=== PATIENT | male | born 1950 | race Caucasian/White ===

== ENCOUNTER → 2017-02-10 | Outpatient (CLI) | payer MEDICARE ==
[2017-02-10 16:39] VITALS: BP 188/67; PULSE 84; RESP 16; TEMP 98; BMI 33.0
== END | disposition home or self-care (01) ==
LOC: BARWHC3 15:22
PROVIDERS: ATTEND Surgery Plastic and Reconstructive Surgery
DX: Z48.815 Encounter for surgical aftercare following surgery on the digestive system (principal); E66.01 Morbid (severe) obesity due to excess calories; Z98.84 Bariatric surgery status; E89.1 Postprocedural hypoinsulinemia; D50.8 Other iron deficiency anemias; E44.0 Moderate protein-calorie malnutrition; E55.9 Vitamin D deficiency, unspecified; Z68.35 Body mass index [BMI] 35.0-35.9, adult; E11.9 Type 2 diabetes mellitus without complications; I11.9 Hypertensive heart disease without heart failure
CPT/HCPCS: 99201

== ENCOUNTER 2017-03-17 06:45 | Day surgery (SDC) | payer MEDICARE ==
[2017-03-15 16:36] VITALS: BMI 33.3
[~2017-03-17 06:45] MED LIST: LACTATED RINGERS 1,000 ML IV SCH
[2017-03-17 07:19] VITALS: TEMP 98.7
--- NOTE | 2017-03-17 07:37 | P.GSHP ---
History of Present Illness H&P Date: 03/17/17 CHIEF COMPLAINT: GERD HISTORY OF PRESENT ILLNESS: The patient is a 67-year-old male who presents reports gastroesophageal reflux disease. Upper endoscopy was offered for further evaluation and management. PAST MEDICAL HISTORY: Please see list. PAST SURGICAL HISTORY: Please see list. MEDICATIONS: Please see list. ALLERGIES: Please see list. SOCIAL HISTORY: No illicit drug use FAMILY HISTORY: No reports of Crohn disease or ulcerative colitis. REVIEW OF ORGAN SYSTEMS: CONSTITUTIONAL: No reports of fevers or chills. GI: Denies any blood in stools or constipation. PHYSICAL EXAM: VITAL SIGNS: Stable GENERAL: Well-developed and pleasant in no acute distress. HEENT: No scleral icterus. Extraocular movements grossly intact. Moist buccal mucosa. NECK: Supple without lymphadenopathy. CHEST: Unlabored respirations. Equal bilateral excursions. CARDIOVASCULAR: Regular rate and rhythm. Distal 2+ pulses. ABDOMEN: Soft, nondistended. MUSCULOSKELETAL: No clubbing, cyanosis, or edema. ASSESSMENT: 1. Gastroesophageal reflux disease PLAN: 1. Recommend proceeding with an upper endoscopy Past Medical History Past Medical History: Diabetes Mellitus, GERD/Reflux, Osteoarthritis (OA), Seizure Disorder Additional Past Medical History / Comment(s): HX OF SEIZURE X1 (1994), BORDERLINE HTN, ENVIRONMENTAL ALLERGIES , DAILY SINUS HEADACHES, CHRONIC BACK PAIN ,MUSCLE PARLAYSIS LEFT LOW BACK FROM SPINAL TAP., PAIN FROM HERNIATED CERVICAL DISCS. History of Any Multi-Drug Resistant Organisms: None Reported Past Surgical History: Hernia Repair, Orthopedic Surgery Additional Past Surgical History / Comment(s): ,bilateral carpal tunnel surgery trigger finger surgery, cataract surgery Past Anesthesia/Blood Transfusion Reactions: No Reported Reaction Past Psychological History: No Psychological Hx Reported Smoking Status: Former smoker Past Alcohol Use History: None Reported Additional Past Alcohol Use History / Comment(s): quit 1997, SMOKED 1 PPD OR LESS, SMOKED 30 YEARS. Past Drug Use History: None Reported - Past Family History Mother Family Medical History: Blood Disorder Additional Family Medical History / Comment(s): COLON CANCER Father Family Medical History: Cancer Additional Family Medical History / Comment(s): COLON CANCER Medications and Allergies Home Medications Medication Instructions Recorded Confirmed Type Glimepiride [Amaryl] 4 mg PO DAILY 02/10/17 03/17/17 History Glucosam/Chond/Hyalu/Cf Borate 1 tab PO DAILY 02/10/17 03/17/17 History [Move Free Joint Health Tablet] Insulin Glargine,Hum.rec.anlog 68 units SQ HS 02/10/17 03/17/17 History [Toujeo Solostar] Lansoprazole [Prevacid] 15 tab PO DAILY 02/10/17 03/17/17 History metFORMIN HCL 1 tab PO BID 02/10/17 03/17/17 History Acetaminophen Tab [Tylenol Tab] 650 mg PO Q4-6H PRN 03/15/17 03/17/17 History Cholecalciferol [Vitamin D3] 1,000 unit PO DAILY 03/15/17 03/17/17 History Ibuprofen [Motrin] 200 - 600 mg PO Q4-6H PRN 03/15/17 03/17/17 History Insulin Glargine,Hum.rec.anlog 68 units SQ HS 03/15/17 03/17/17 History [Toujeo Solostar] Krill Oil (Unknown Dose) 1 cap PO DAILY 03/15/17 03/17/17 History Niacin 200 mg PO DAILY 03/15/17 03/17/17 History Pseudoephedrine [Sudafed] 60 mg PO Q4-6H PRN 03/15/17 03/17/17 History Vitamin B Complex 1 each PO DAILY 03/15/17 03/17/17 History Vitamin E Acetate [Vitamin E] 200 unit PO DAILY 03/15/17 03/17/17 History Allergies Allergy/AdvReac Type Severity Reaction Status Date / Time omeprazole [From Prilosec] Allergy Rash/Hives Verified 03/17/17 07:15 clarithromycin [From Biaxin] AdvReac Unknown Black Verified 03/17/17 07:15 Hairy Tongue. Uppicls-Jqz-Jjg Reductase AdvReac Unknown skin and Verified 03/17/17 07:15 Inhibitor muscle pain Surgical - Exam Vital Signs Temp Pulse Resp BP Pulse Ox 98.7 F 89 16 177/71 99 03/17/17 07:07 03/17/17 07:07 03/17/17 07:07 03/17/17 07:07 03/17/17 07:07
[2017-03-17 07:54] LABS: Glucose,Whole Blood 136 mg/dL (75-99)
[2017-03-17] MEDS ORDERED: PROPOFOL 10 MG/ML 20 ML VIAL IV ONE (07:58)
[2017-03-17] MEDS ORDERED: LIDOCAINE 1% INJ 10MG/ML (20 ML MDV) ONE (07:58)
--- NOTE | 2017-03-17 08:10 | P.PCN ---
Date of Procedure: 03/17/17 Description of Procedure: PREOPERATIVE DIAGNOSIS: Gastroesophageal reflux disease. Morbid obesity. POSTOPERATIVE DIAGNOSIS: Morbid obesity. Gastritis. Gastroesophageal reflux disease. Diaphragmatic hiatal hernia without obstruction. OPERATION: Esophagogastroduodenoscopy with biopsies along antrum. SURGEON: Rebecca Pozo MD ANESTHESIA: MAC. INDICATIONS: The patient is a 67-year-old male who presents with a history of reflux disease. Benefits and risks of the procedure were described. Informed consent was obtained. DESCRIPTION: The patient was brought into the endoscopy suite and laid in the left lateral decubitus position. An Olympus gastroscope was passed along the posterior oropharynx down to the distal esophagus where the squamocolumnar junction was encountered at 41 cm from the incisors. The stomach was entered and no bile reflux was found. Additional findings are listed below. Biopsies with cold forceps were obtained of the antrum. The first through third portion of the duodenum was examined and unremarkable. Retroflexion of the scope confirmed Hill grade 4 lower esophageal valve. The squamocolumnar junction demostrated LA grade A erosive esophagitis. The stomach was desufflated. The patient tolerated the procedure well. FINDINGS: Squamocolumnar junction 40 cm from the incisors. Diaphragmatic hiatus at 41 cm. Hiatal hernia 1 cm. Hill grade 4 lower esophageal valve. LA grade A erosive esophagitis. No active duodenitis. Gastritis. RECOMMENDATIONS: Further recommendations pending results of pathology report. Upper endoscopy as needed.
[2017-03-17 08:17] VITALS: RESP 20
[2017-03-17 08:34] VITALS: BP 142/64; PULSE 87
== END 2017-03-17 09:00 | disposition home or self-care (01) ==
LOC: ORWHC2ENDO 06:45
PROVIDERS: ATTEND Surgery Plastic and Reconstructive Surgery
DX: K29.50 Unspecified chronic gastritis without bleeding (principal); K44.9 Diaphragmatic hernia without obstruction or gangrene; K21.0 Gastro-esophageal reflux disease with esophagitis; E66.01 Morbid (severe) obesity due to excess calories; E11.9 Type 2 diabetes mellitus without complications; M19.90 Unspecified osteoarthritis, unspecified site; G40.909 Epilepsy, unspecified, not intractable, without status epilepticus; M54.9 Dorsalgia, unspecified; G89.29 Other chronic pain; M50.20 Other cervical disc displacement, unspecified cervical region; I10 Essential (primary) hypertension; Z79.84 Long term (current) use of oral hypoglycemic drugs; Z79.4 Long term (current) use of insulin; Z79.899 Other long term (current) drug therapy; Z88.8 Allergy status to other drugs, medicaments and biological substances; Z87.891 Personal history of nicotine dependence
CPT/HCPCS: 88305; 88342; 43239; J2001; J2704

== ENCOUNTER → 2017-03-17 | Outpatient (CLI) | payer MEDICARE ==
[2017-03-17 09:18] LABS: EKG EKG PERFORMED
[2017-03-17 09:39] LABS: CH 31.7; CHCM 34.2; HDW 2.74; HGB 13.4 gm/dL (13.0-17.5); MCH 32.7 pg (25.0-35.0); MCHC 35.2 g/dL (31.0-37.0); Mean Platelet Volume 6.6; RBC 4.09 m/uL (4.30-5.90); RDW 13.9 % (11.5-15.5); WBC 7.4 k/uL (3.8-10.6)
[2017-03-17 12:23] LABS: Hemoglobin A1C 8.3 % (4.2-6.1)
[2017-03-17 12:46] LABS: ALT 88 U/L (21-72); AST 50 U/L (17-59); Alkaline Phosphatase 59 U/L (38-126); Anion Gap 11 mmol/L; Blood Urea Nitrogen 16 mg/dL (9-20); Calcium 9.3 mg/dL (8.4-10.2); Carbon Dioxide 25 mmol/L (22-30); Chloride 104 mmol/L (98-107); Cholesterol 198 mg/dL (<200); Glucose 130 mg/dL (74-99); HDL Cholesterol 40 mg/dL (40-60); Non-African American GFR(MDRD) >60 (>60 ml/min/1.73 sqM); Potassium 4.5 mmol/L (3.5-5.1); Sodium 140 mmol/L (137-145); Total Bilirubin 0.4 mg/dL (0.2-1.3); Total Protein 6.8 g/dL (6.3-8.2)
[2017-03-17 12:55] LABS: Total Iron Binding Capacity 352 ug/dL (261-462)
[2017-03-17 13:31] LABS: Vitamin B12 618 pg/mL
== END | disposition home or self-care (01) ==
LOC: LABWHC1 09:08
PROVIDERS: ATTEND Surgery Plastic and Reconstructive Surgery
DX: Z48.815 Encounter for surgical aftercare following surgery on the digestive system (principal); E66.01 Morbid (severe) obesity due to excess calories; D50.8 Other iron deficiency anemias; E55.9 Vitamin D deficiency, unspecified; E11.9 Type 2 diabetes mellitus without complications; I11.9 Hypertensive heart disease without heart failure; Z68.35 Body mass index [BMI] 35.0-35.9, adult; Z98.84 Bariatric surgery status
CPT/HCPCS: 36415; 80053; 80061; 82306; 82607; 82728; 82746; 83036; 83550; 84425; 84443; 85027; 93005

== ENCOUNTER → 2017-03-25 | Outpatient (CLI) | payer MEDICARE ==
[2017-03-25 12:28] VITALS: BP 135/62; PULSE 74; RESP 16; TEMP 98.1; BMI 34.1
--- NOTE | 2017-04-04 21:54 | P.PN ---
Progress Note - Text DATE OF SERVICE: 03/25/2017 CHIEF COMPLAINT: Morbid obesity. HISTORY OF PRESENT ILLNESS: Pepe Awan is a 67-year-old gentleman with morbid obesity who 1 month ago was 226 and body mass was 35.7. He comes in weighing 216 pounds. He has gained 6 pounds. [place] body weight is 154 pounds. He is 60 pounds overweight. He completed an upper endoscopy. He has poorly controlled diabetes type 2. His gastroesophageal reflux disease. Now he presents for follow-up. PAST MEDICAL HISTORY: 1. Dyslipidemia. 2. Diabetes type 2, insulin-dependent. 3. Hypertension. 4. Osteoarthritis. 6. Obstructive sleep apnea. PAST SURGICAL HISTORY: 1. Inguinal hernia repair. 2. Bilateral carpal tunnel surgery. 3. Cataract surgery. MEDICATIONS: 1. Prevacid. 2. Insulin glargine 3. Amaryl. 4. Metformin. 5. Move free joint tablet 6. Vitamin E. 7. Vitamin B complex. 8. Sudafed. 9. Niacin. 10. Krill oil. 11. Motrin. 12. Vitamin D. 13. Tylenol. ALLERGIES: 1. Omeprazole. 2. Clarithromycin. 3. Statins. SOCIAL HISTORY: Former smoker. He is . He is a retired nurse. FAMILY HISTORY: Pertinent for obesity. He also has an aunt who had stomach cancer. Strong family history of diabetes type 2. REVIEW OF SYSTEMS: CONSTITUTIONAL: Initially weight of 226 pounds. Recent weight loss of 16 pounds. Body mass index was 35.7 down to 33.2. HEENT: Denies any active troubles with vision or hearing. ENDOCRINE: No reports of hypothyroidism. Poorly controlled diabetes type 2, insulin-dependent. RESPIRATORY: No dysuria exertion. No reports of asthma. CARDIOVASCULAR: No reports of heart attacks or chest pain. History of hypertensive heart disease. GI: Denies any diarrhea, constipation, or blood in stools. MUSCULOSKELETAL: Has diffuse joint pain involving the lower back, hips, knees. NEURO: No reports of seizure disorders. No history of headaches. PSYCH: No reports of depression or suicidal ideation. HEMATOLOGIC: No family history of DVTs or pulmonary embolism. PHYSICAL EXAM: VITAL SIGNS: 5 foot 6.75 inches, 216 pounds, Body mass index 34.1. Vital Signs Temp 98.1 F 03/25/17 12:20 Pulse 74 03/25/17 12:20 Resp 16 03/25/17 12:20 BP 135/62 03/25/17 12:20 Pulse Ox GENERAL: Well-developed pleasant male in no acute distress. HEENT: No scleral icterus. Extraocular movements grossly intact. Moist buccal mucosa. No nasal drainage. Hears conversational speech. NECK: Supple without lymphadenopathy. Has no JVD distention. CHEST: Unlabored respirations with equal bilateral excursions. CARDIOVASCULAR: Regular rate, regular rhythm. Distal 2+ pulses. ABDOMEN: Obese, soft, nontender, nondistended. MUSCULOSKELETAL: No clubbing, cyanosis, or edema. NEURO: No focal or lateralizing signs. Cranial nerves 2 through 12 grossly within normal limits. PSYCH: Appropriate affect. Alert and oriented to person, place and time. SKIN: Well perfused. Good skin turgor. EGD FINDINGS: Squamocolumnar junction 40 cm from the incisors. Diaphragmatic hiatus at 41 cm. Hiatal hernia 1 cm. Hill grade 4 lower esophageal valve. LA grade A erosive esophagitis. No active duodenitis. Gastritis. LABS: Hemoglobin A1c of 8.3. Triglycerides elevated. ALT elevated. TSH is low. EKG: Left axis deviation. ASSESSMENT: 1. Obesity due to excess calories 2. BMI 33.2. 3. Hypertensive heart disease with cardiomyopathy. 4. Diabetes type 2, insulin-dependent, poorly controlled. 5. Gastroesophageal reflux disease. 6. Chronic sinusitis. 7. Osteoarthritis, diffuse. 8. Hiatal hernia. 9. Hyperthyroidism. 10. Hypertriglyceridemia. 11. Elevated ALT. PLAN: 1. He has elevated hemoglobin A1c despite multiple medications for his blood sugar. 2. Recommend evaluation and treatment for obstructive sleep apnea. 3. He has a hiatal hernia which explains his gastroesophageal reflux disease. He is looking into a gastric bypass. 4. His EKG is not completely normal. Recommend evaluation with refinisher.
== END | disposition home or self-care (01) ==
LOC: BARWHC3 10:28
PROVIDERS: ATTEND Surgery Plastic and Reconstructive Surgery
DX: E66.9 Obesity, unspecified (principal); I11.9 Hypertensive heart disease without heart failure; E11.9 Type 2 diabetes mellitus without complications; K21.9 Gastro-esophageal reflux disease without esophagitis; J32.9 Chronic sinusitis, unspecified; M19.90 Unspecified osteoarthritis, unspecified site; K44.9 Diaphragmatic hernia without obstruction or gangrene; E05.90 Thyrotoxicosis, unspecified without thyrotoxic crisis or storm; E78.1 Pure hyperglyceridemia; R74.0 Nonspecific elevation of levels of transaminase and lactic acid dehydrogenase [LDH]; Z68.33 Body mass index [BMI] 33.0-33.9, adult; Z79.899 Other long term (current) drug therapy; Z79.82 Long term (current) use of aspirin; Z88.1 Allergy status to other antibiotic agents; Z87.891 Personal history of nicotine dependence
CPT/HCPCS: 99211

== ENCOUNTER → 2017-05-12 | Outpatient (CLI) | payer MEDICARE ==
[2017-05-12 16:08] VITALS: BP 176/87; PULSE 110; RESP 18; TEMP 98.2; BMI 34.4
--- NOTE | 2017-07-05 20:11 | P.PN ---
Subjective Progress Note Date: 05/12/17 DATE OF SERVICE: 05/12/2017 CHIEF COMPLAINT: Morbid obesity. HISTORY OF PRESENT ILLNESS: Pepe Awan is a 67-year-old gentleman with morbid obesity who had weighed 226 with body mass index 35.7. He comes in weighing 218 pounds. He has gained 2 pounds in 2 months. [place] body weight is 154 pounds. He is 64 pounds overweight. He has history of hypertensive heart disease. He is bending cardiac risk assessment clearance. He has developed hyperlipidemia including diabetes type 2, hypertension, sleep apnea as a result of his morbid obesity. He is evaluating for gastric procedure. Currently, he reports moderate stress in his life. PAST MEDICAL HISTORY: 1. Dyslipidemia. 2. Diabetes type 2, insulin-dependent. 3. Hypertension. 4. Osteoarthritis. 6. Obstructive sleep apnea. PAST SURGICAL HISTORY: 1. Inguinal hernia repair. 2. Bilateral carpal tunnel surgery. 3. Cataract surgery. MEDICATIONS: 1. Prevacid. 2. Insulin glargine 3. Amaryl. 4. Metformin. 5. Move free joint tablet 6. Vitamin E. 7. Vitamin B complex. 8. Sudafed. 9. Niacin. 10. Krill oil. 11. Motrin. 12. Vitamin D. 13. Tylenol. ALLERGIES: 1. Omeprazole. 2. Clarithromycin. 3. Statins. SOCIAL HISTORY: Former smoker. He is . He is a retired nurse. FAMILY HISTORY: Pertinent for obesity. He also has an aunt who had stomach cancer. Strong family history of diabetes type 2. REVIEW OF SYSTEMS: CONSTITUTIONAL: Initially weight of 226 pounds. Body mass index was 35.7 down to 34.4. HEENT: Denies any active troubles with vision or hearing. ENDOCRINE: No reports of hypothyroidism. Poorly controlled diabetes type 2, insulin-dependent. RESPIRATORY: No dysuria exertion. No reports of asthma. Has obstructive sleep apnea. CARDIOVASCULAR: No reports of heart attacks or chest pain. History of hypertensive heart disease. GI: Denies any diarrhea, constipation, or blood in stools. MUSCULOSKELETAL: Has diffuse joint pain involving the lower back, hips, knees. NEURO: No reports of seizure disorders. No history of headaches. PSYCH: No reports of depression or suicidal ideation. HEMATOLOGIC: No family history of DVTs or pulmonary embolism. PHYSICAL EXAM: VITAL SIGNS: 5 foot 6.75 inches, 218 pounds, Body mass index 34.4. Vital Signs Temp 98.2 F 05/12/17 16:01 Pulse 110 H 05/12/17 16:01 Resp 18 05/12/17 16:01 BP 176/87 05/12/17 16:01 Pulse Ox GENERAL: Well-developed pleasant male in no acute distress. HEENT: No scleral icterus. Extraocular movements grossly intact. Moist buccal mucosa. No nasal drainage. Hears conversational speech. NECK: Supple without lymphadenopathy. Has no JVD distention. CHEST: Unlabored respirations with equal bilateral excursions. CARDIOVASCULAR: Tachycardic. Distal 2+ pulses. ABDOMEN: Obese, soft, nontender, nondistended. MUSCULOSKELETAL: No clubbing, cyanosis, or edema. NEURO: No focal or lateralizing signs. Cranial nerves 2 through 12 grossly within normal limits. PSYCH: Appropriate affect. Alert and oriented to person, place and time. SKIN: Well perfused. Good skin turgor. EGD FINDINGS: Hiatal hernia 1 cm. Hill grade 4 lower esophageal valve. LABS: Hemoglobin A1c of 8.3. Triglycerides elevated. ALT elevated. TSH is low. EKG: Left axis deviation. ASSESSMENT: 1. Morbid obesity due to excess calories 2. BMI 35.7. 3. Hypertensive heart disease with cardiomyopathy. 4. Diabetes type 2, insulin-dependent, poorly controlled. 5. Gastroesophageal reflux disease. 6. Chronic sinusitis. 7. Osteoarthritis, diffuse. 8. Hiatal hernia. 9. Hyperthyroidism. 10. Hypertriglyceridemia. 11. Elevated ALT. 12. Abnormal EKG. PLAN: 1. He comes in hypertensive including with tachycardia. His pending cardiac risk assessment. 2. He is pending cardiac catheterization. 3. [place] bariat[facility] surgical collaborative data was reviewed in detail. All benefits and risks were described including between the band, sleeve, gastric bypass. 4. He is looking into the gastric bypass. Recommend follow-up upon completion of cardiac risk assessment. Objective - Vital Signs Vital signs: Vital Signs Temp 98.2 F 05/12/17 16:01 Pulse 110 H 05/12/17 16:01 Resp 18 05/12/17 16:01 BP 176/87 05/12/17 16:01 Pulse Ox Intake & Output 05/11/17 05/12/17 05/12/17 18:59 06:59 18:59 Weight 98.928 kg
== END | disposition home or self-care (01) ==
LOC: BARWHC3 14:28
PROVIDERS: ATTEND Surgery Plastic and Reconstructive Surgery
DX: E66.01 Morbid (severe) obesity due to excess calories (principal); I11.9 Hypertensive heart disease without heart failure; E11.9 Type 2 diabetes mellitus without complications; K21.9 Gastro-esophageal reflux disease without esophagitis; J32.9 Chronic sinusitis, unspecified; M19.90 Unspecified osteoarthritis, unspecified site; K44.9 Diaphragmatic hernia without obstruction or gangrene; E05.90 Thyrotoxicosis, unspecified without thyrotoxic crisis or storm; E78.1 Pure hyperglyceridemia; R94.31 Abnormal electrocardiogram [ECG] [EKG]; R74.0 Nonspecific elevation of levels of transaminase and lactic acid dehydrogenase [LDH]; Z68.35 Body mass index [BMI] 35.0-35.9, adult; Z79.4 Long term (current) use of insulin; Z79.1 Long term (current) use of non-steroidal anti-inflammatories (NSAID); Z79.899 Other long term (current) drug therapy; Z88.8 Allergy status to other drugs, medicaments and biological substances; Z87.891 Personal history of nicotine dependence; Z98.890 Other specified postprocedural states; E78.5 Hyperlipidemia, unspecified
CPT/HCPCS: 99211

== ENCOUNTER → 2017-06-02 | Outpatient (CLI) | payer MEDICARE ==
--- NOTE | 2017-06-02 18:21 | PN ---
PROGRESS NOTE This patient is a 67-year-old gentleman who has been followed in the sleep center is here to discuss results of his sleep study and following plan. I discussed the results of his diagnostic sleep study with the patient and his family in detail. The patient has mild obstructive sleep apnea-hypopnea syndrome with apnea- hypopnea index of 7.9, in REM sleep 22.9, with oxygen desaturation to 86.5%. The patient sometimes feels sleepy during the day, especially while watching TV. [place] Sleepiness Scale increased to 11. Sometimes his blood pressure is increased. The patient is under evaluation for possible coronary artery disease. MEDICATIONS: 1. Amaryl. 2. Metformin. 3. Prevacid. 4. Tuojeo. 5. Latanoprost. PHYSICAL EXAMINATION: Patient in no distress. VITAL SIGNS: BP 155/67, HR 101, RR 16, weight 221.6, oxygen saturation at room air 95%. HEENT: PERRLA, EOMI. Evaluation of oropharynx showed tongue protrudes midline; extremely low position of soft palate. Mallampati IV. NECK: Supple. No JVD. Thyroid is not palpable. LUNGS: Clear to percussion and to auscultation. Good air exchange. No wheezing or rhonchi. HEART: S1, S2. Irregular. Tachycardia. ABDOMEN: Slightly obese. EXTREMITIES: No clubbing or cyanosis. DIESEL AUTOMOTIVE TECHNICIAN: Awake, alert and oriented x3. Cranial nerves 2 to 7 intact. There is no fasciculation or atrophy noted. No focal deficits observed. IMPRESSION: 1. Mild obstructive sleep apnea-hypopnea syndrome. The patient presents with symptoms of excessive daytime sleepiness. 2. Hypertension in the office. 3. The patient is under evaluation for possible coronary artery disease, planning for cardiac catheterization. 4. Diabetes. 5. Migraines. 6. Severe periodic limb movements, 88.9 per hour, with 4.7 microarousals per hour. 7. History of carpal tunnel syndrome. 8. History of nasal fracture with restriction of nasal breathing. 9. Status post bilateral cataract surgery. 10.Status post surgical treatment for umbilical hernia. 11.Glaucoma. PLAN: 1. CPAP titration for correction of respiratory abnormalities during sleep. 2. Sleep hygiene with regular time in bed for at least 7-1/2 hours. 3. No driving if feeling any sleepiness. 4. Watching and losing weight. Thank you very much for allowing me to participate in the management of your patient. Sincerely, Gilson Turner MD, PhD, FAASM Diplomat of [employer] Retail Service Lead Merchandiser of [facility] [place] WALTER / [place]: [phone] /
== END | disposition home or self-care (01) ==
LOC: SLEEP 14:35
PROVIDERS: ATTEND Internal Medicine
DX: G47.33 Obstructive sleep apnea (adult) (pediatric) (principal); I10 Essential (primary) hypertension; E11.9 Type 2 diabetes mellitus without complications; G43.909 Migraine, unspecified, not intractable, without status migrainosus; G47.61 Periodic limb movement disorder; H40.9 Unspecified glaucoma; Z87.39 Personal history of other diseases of the musculoskeletal system and connective tissue; Z79.899 Other long term (current) drug therapy; Z98.890 Other specified postprocedural states

== ENCOUNTER → 2017-11-11 | Outpatient (CLI) | payer MEDICARE ==
--- NOTE | 2017-11-11 16:56 | SFUN ---
SLEEP CENTER FOLLOW UP NOTE DATE OF SERVICE: 11/11/2017 67-year-old gentleman has been followed in Sleep Center for treatment of obstructive sleep apnea-hypopnea syndrome. Recently patient received his CPAP unit and this is his first visit today to the office after he was started on treatment with CPAP. According to patient, he sleeps now significantly better than ever in his life before. [place] Sleepiness Scale is 3. I checked reading from his machine and showed the patient using equipment 100% of the time more than 4 hours. Average usage is 7 hours 36 minutes. CPAP pressure is 8 cm of water. Apnea-hypopnea index reading from the machine is 0.7, which is totally normal. Leak is average 13.1 L/minute which is normal range. MEDICATIONS: Metformin, Prevacid, latanoprost eye drops. PHYSICAL EXAM: GENERAL Patient in no distress. VITAL SIGNS BP 144/66, HR 80, RR 16, weight 227, temp 96.9, oxygen saturation from 95%. HEENT PERRLA, EOMI, evaluation of oropharynx showed moderately low position of soft palate. NECK Supple, no JVD. Thyroid is not palpable. LUNGS Clear to percussion and to auscultation. Good air exchange. No wheezing or rhonchi. HEART S1, S2 regular. No murmurs, gallops, or rubs. ABDOMEN Slightly obese. Soft and nontender. Bowel sounds are present. No organomegaly appreciated. EXTREMITIES No clubbing or cyanosis. RAMP LEAD Awake, alert, and oriented X3. Cranial nerves 2 to 7 intact. There is no fasciculation or atrophy. noted. No focal deficits observed. IMPRESSION: 1. Obstructive sleep apnea-hypopnea syndrome in full control with CPAP at 8 cm of water. Patient demonstrated 100% compliance with treatment benefitting from treatment. 2. Diabetes mellitus. 3. History of hypertension in the office. Borderline blood pressure today. 4. History of migraines. 5. Carpal tunnel syndrome. 6. Severe periodic limb movements during diagnostic night. Not any clinical symptoms of periodic limb movements at the present time while in treatment with CPAP. 7. Status post bilateral cataract surgery. 8. Glaucoma. 9. Status post surgical treatment of umbilical hernia. PLAN: 1. Patient will continue to use CPAP equipment every night. 2. Losing weight. 3. Sleep hygiene with regular time in bed for at least 8 hours. 4. No driving if feeling sleepiness. 5. Followup visit in 10 months. Thank you very much for allowing me to participate in management of your patient. Sincerely, Gilson Turner MD, PhD, FAASM Diplomat of [employer] Victim Witness Administrator of [facility] [place] WALTER / [place]: [phone] /
== END | disposition home or self-care (01) ==
LOC: SLEEP 15:22
PROVIDERS: ATTEND Internal Medicine
DX: G47.33 Obstructive sleep apnea (adult) (pediatric) (principal); I10 Essential (primary) hypertension; H40.9 Unspecified glaucoma; G56.00 Carpal tunnel syndrome, unspecified upper limb; G47.61 Periodic limb movement disorder; Z99.89 Dependence on other enabling machines and devices; Z79.84 Long term (current) use of oral hypoglycemic drugs; Z86.69 Personal history of other diseases of the nervous system and sense organs; Z98.890 Other specified postprocedural states; Z98.41 Cataract extraction status, right eye; Z98.42 Cataract extraction status, left eye

== ENCOUNTER → 2017-11-17 | Outpatient (CLI) | payer MEDICARE ==
[2017-11-17 14:10] VITALS: BP 176/89; PULSE 96; TEMP 97.8; BMI 36.3
--- NOTE | 2017-11-17 16:19 | P.PN ---
Subjective Progress Note Date: 11/17/17 HPI: He comes in looking for the gastric bypass. His blood sugars are now up to over 300s. He reports eating moderate amount of processed foods including chicken pot pie. In the morning his blood sugars are in the 200s. He reports eating frozen dinners. He reports eating few amount of fresh vegetables. No abdominal pain. He has severe GERD and is still taking Prevacid. He is looking into the gastric bypass. PLAN: 1. Hgb A1c re-check for poorly controlled diabetes. 2. Recommend fresh vegetables and away from carbohydrate foods. 3. Consent for surgery for gastric bypass reviewed. Increased risk for infection described from hyperglycemia. Objective - Vital Signs Vital signs: Vital Signs Temp 97.8 F 11/17/17 14:04 Pulse 96 11/17/17 14:04 Resp BP 176/89 11/17/17 14:04 Pulse Ox Intake & Output 11/16/17 11/17/17 11/17/17 18:59 06:59 18:59 Weight 104.326 kg
== END | disposition home or self-care (01) ==
LOC: BARWHC3 13:21
PROVIDERS: ATTEND Surgery Plastic and Reconstructive Surgery
DX: Z01.818 Encounter for other preprocedural examination (principal); K21.9 Gastro-esophageal reflux disease without esophagitis; E11.65 Type 2 diabetes mellitus with hyperglycemia
CPT/HCPCS: 99211

== ENCOUNTER → 2018-04-11 | Outpatient (CLI) | payer MEDICARE | END | disposition home or self-care (01) | LOC: BARWHC3 08:53 | PROVIDERS: ATTEND Surgery Plastic and Reconstructive Surgery | DX: Z53.9 Procedure and treatment not carried out, unspecified reason (principal) ==

== ENCOUNTER → 2018-05-18 | Outpatient (CLI) | payer MEDICARE ==
--- NOTE | 2018-05-18 16:08 | P.PN ---
Subjective Progress Note Date: 05/18/18 HPI: He is down on his blood sugar. He is rarely taking insulin. He has lost 13 pounds in 1 week. His blood sugar is under 150s. His blood pressure is improving. ABDOMEN: Non-distended. PLAN: 1. Continue blood pressure medications 2. Cut back on insulin and diabetic medications 3. Continue with deep breathing exercise. 4. Follow up in 3 weeks.
[2018-05-18 16:58] VITALS: BP 149/64; PULSE 62; TEMP 98.3; BMI 32.7
== END | disposition home or self-care (01) ==
LOC: BARWHC3 14:48
PROVIDERS: ATTEND Surgery Plastic and Reconstructive Surgery
DX: E66.01 Morbid (severe) obesity due to excess calories (principal); Z68.32 Body mass index [BMI] 32.0-32.9, adult
CPT/HCPCS: 97802; G0463; 99211

== ENCOUNTER → 2018-06-08 | Outpatient (CLI) | payer MEDICARE ==
--- NOTE | 2018-06-08 16:20 | P.PN ---
Subjective Progress Note Date: 06/08/18 DATE OF SERVICE: 06/08/2018 CHIEF COMPLAINT: Status post gastric bypass HISTORY OF PRESENT ILLNESS: Pepe Awan is a 68-year-old gentleman status post gastric bypass 05/09/2018. He is 1 month out. He is now under 200 pounds in over 10 years. His blood sugar is better. No abdominal pain. Today, he comes in weighing 199 pounds from 207 pounds, 2 weeks ago. His highest weight was 230 pounds. At his height of 5 feet 6.75 inches, his ideal body weight is 154 pounds. He has lost 31 pounds. Percent excess weight loss is 41%. PHYSICAL EXAM: VITAL SIGNS: 5 foot 6.75 inches, 199 pounds, Body mass index 31.4 Vital Signs Temp 98.1 F 06/08/18 16:22 Pulse 75 06/08/18 16:22 Resp 16 06/08/18 16:22 BP 162/71 06/08/18 16:22 Pulse Ox GENERAL: Well-developed pleasant male in no acute distress. HEENT: No scleral icterus. Extraocular movements grossly intact. Moist buccal mucosa. No nasal drainage. Hears conversational speech. NECK: Supple without lymphadenopathy. Has no JVD distention. CHEST: Unlabored respirations with equal bilateral excursions. CARDIOVASCULAR: Regular rate, regular rhythm. Distal 2+ pulses. ABDOMEN: Obese, soft, nondistended. No infection. MUSCULOSKELETAL: No clubbing, cyanosis, or edema. NEURO: No focal or lateralizing signs. Cranial nerves 2 through 12 grossly within normal limits. PSYCH: Appropriate affect. Alert and oriented to person, place and time. SKIN: Well perfused. Good skin turgor. ASSESSMENT: 1. Morbid obesity due to excess calories 2. BMI 36.3, initial now 31.4 3. Hypertensive heart disease with cardiomyopathy. 4. Diabetes type 2, insulin-dependent 5. Gastroesophageal reflux disease. 6. Chronic sinusitis. 7. Osteoarthritis, diffuse. 8. Hiatal hernia. 9. Hyperthyroidism. 10. Hypertriglyceridemia. 11. Status post gastric bypass PLAN: 1. Recommend bariatric labs 2. Refill for Lisinopril 3. He can stop Metoprolol. 3. Continue prevacid and lisinopril Objective - Labs CBC & Chem 7: 06/08/18 17:03 06/08/18 17:03
[2018-06-08 16:28] VITALS: BP 162/71; PULSE 75; RESP 16; TEMP 98.1; BMI 31.4
[2018-06-08 17:47] LABS: HCT 39.6 % (39.0-53.0); HGB 13.5 gm/dL (13.0-17.5); MCH 32.4 pg (25.0-35.0); Mean Platelet Volume 6.8; Platelet Count 238 k/uL (150-450); RBC 4.17 m/uL (4.30-5.90); RDW 13.6 % (11.5-15.5); WBC 8.7 k/uL (3.8-10.6)
[2018-06-08 17:56] LABS: Partial Thromboplastin Time 26.3 sec (22.0-30.0); Prothrombin Time 10.5 sec (9.0-12.0)
[2018-06-09 03:25] LABS: Parathyroid Hormone Intact 37.1 pg/mL (14.0-72.0)
[2018-06-09 03:59] LABS: Albumin 4.7 g/dL (3.80-4.90); Albumin/Globulin Ratio 2.24 (1.20-2.10); Anion Gap 12.8 mmol/L (4.00-12.00); Calcium 9.8 mg/dL (8.7-10.3); Carbon Dioxide 21.2 mmol/L (21.6-31.8); Globulin 2.1 g/dL (2.1-3.7); LDL Cholesterol,Calculated 96.4 mg/dL (0.0-131.0); Magnesium 1.5 mg/dL (1.5-2.4); Phosphorus 3.6 mg/dL (2.4-5.1); Potassium 4.8 mmol/L (3.5-5.5); Total Bilirubin 0.4 mg/dL (0.3-1.2); Total Protein 6.8 g/dL (6.2-8.2); VLDL Calculation 35.6 mg/dL (5.00-40.00)
[2018-06-09 04:09] LABS: Vitamin D 25 Hydroxy 41.8 ng/mL (30.0-100.0)
[2018-06-09 04:35] LABS: Folate, Serum 14.6 ng/mL; Iron Saturation 19.22 (15.00-50.00)
[2018-06-09 06:02] LABS: Hemoglobin A1C 7.4 % (4.0-6.0)
[2018-06-09 13:55] LABS: Zinc, Serum 65 ug/dL (60-130)
[2018-06-09 15:06] LABS: Vitamin B1 67 ug/L (38-122)
[2018-06-10 08:16] LABS: Vitamin A 68 ug/dL (38-106)
[2018-06-14 17:26] LABS: Selenium 173 mcg/L (63-160)
== END | disposition home or self-care (01) ==
LOC: BARWHC3 14:55
PROVIDERS: ATTEND Surgery Plastic and Reconstructive Surgery
DX: Z48.815 Encounter for surgical aftercare following surgery on the digestive system (principal); E66.01 Morbid (severe) obesity due to excess calories; I11.9 Hypertensive heart disease without heart failure; I42.9 Cardiomyopathy, unspecified; E11.9 Type 2 diabetes mellitus without complications; K21.9 Gastro-esophageal reflux disease without esophagitis; J32.9 Chronic sinusitis, unspecified; M19.90 Unspecified osteoarthritis, unspecified site; E05.90 Thyrotoxicosis, unspecified without thyrotoxic crisis or storm; E78.1 Pure hyperglyceridemia; K44.9 Diaphragmatic hernia without obstruction or gangrene; E21.1 Secondary hyperparathyroidism, not elsewhere classified; E89.1 Postprocedural hypoinsulinemia; D50.9 Iron deficiency anemia, unspecified; K90.9 Intestinal malabsorption, unspecified; E55.9 Vitamin D deficiency, unspecified; K76.9 Liver disease, unspecified; N19 Unspecified kidney failure; K50.90 Crohn's disease, unspecified, without complications; Z68.31 Body mass index [BMI] 31.0-31.9, adult; Z71.3 Dietary counseling and surveillance; Z98.84 Bariatric surgery status; Z79.4 Long term (current) use of insulin; Z79.899 Other long term (current) drug therapy
CPT/HCPCS: 84255; 84134; 84425; 80061; 80053; 82607; 82728; 82525; 82746; 83540; 83550; 83735; 84100; 84443; 84590; 84630; 85027; 85610; 85730; 82306; 83970; 83036; 97803; 36415; G0463; 99211

== ENCOUNTER → 2018-07-13 | Outpatient (CLI) | payer MEDICARE ==
[2018-07-13 17:03] VITALS: BP 143/65; PULSE 67; RESP 16; TEMP 98.4; BMI 29.7
--- NOTE | 2018-07-13 17:19 | P.PN ---
Subjective Progress Note Date: 07/13/18 DATE OF SERVICE: 07/13/2018 CHIEF COMPLAINT: Status post gastric bypass HISTORY OF PRESENT ILLNESS: Pepe Awan is a 68-year-old gentleman status post gastric bypass 05/09/2018. He is 2 months out. He is eating well. He reports moderate reduction of use of insulin. No reports of gastroesophageal reflux disease. No abdominal pain. Today, he comes in weighing 188 pounds from 199 pounds, 1 month ago. He lost 11 pounds in 1 month. His highest weight was 230 pounds. At his height of 5 feet 6.75 inches, his ideal body weight is 154 pounds. He has lost 42 pounds. Percent excess weight loss is 55%. BMI reduced from 36.4 to 29.7. PHYSICAL EXAM: VITAL SIGNS: 5 foot 6.75 inches, 188 pounds, Body mass index 29.7 Vital Signs Temp 98.4 F 07/13/18 17:01 Pulse 67 07/13/18 17:01 Resp 16 07/13/18 17:01 BP 143/65 07/13/18 17:01 Pulse Ox GENERAL: Well-developed pleasant male in no acute distress. HEENT: No scleral icterus. Extraocular movements grossly intact. Moist buccal mucosa. No nasal drainage. Hears conversational speech. NECK: Supple without lymphadenopathy. Has no JVD distention. CHEST: Unlabored respirations with equal bilateral excursions. CARDIOVASCULAR: Regular rate, regular rhythm. Distal 2+ pulses. ABDOMEN: Obese, soft, nondistended. No infection. No hernia MUSCULOSKELETAL: No clubbing, cyanosis, or edema. NEURO: No focal or lateralizing signs. Cranial nerves 2 through 12 grossly within normal limits. PSYCH: Appropriate affect. Alert and oriented to person, place and time. SKIN: Well perfused. Good skin turgor. ASSESSMENT: 1. Morbid obesity due to excess calories 2. BMI 36.3, initial now 29.7 3. Hypertensive heart disease with cardiomyopathy. 4. Diabetes type 2, insulin-dependent 5. Gastroesophageal reflux disease. 6. Chronic sinusitis. 7. Osteoarthritis, diffuse. 8. Hiatal hernia. 9. Hyperthyroidism. 10. Hypertriglyceridemia. 11. Status post gastric bypass 12. Constipation PLAN: 1. Labs reviewed 2. He has constipation. Miralax is advised 3. He may start salad 4. Follow up in August 2018 Objective - Vital Signs Vital signs: Vital Signs Temp 98.4 F 07/13/18 17:01 Pulse 67 07/13/18 17:01 Resp 16 07/13/18 17:01 BP 143/65 07/13/18 17:01 Pulse Ox Intake & Output 07/12/18 07/13/18 07/13/18 18:59 06:59 18:59 Weight 85.417 kg
== END | disposition home or self-care (01) ==
LOC: BARWHC3 15:09
PROVIDERS: ATTEND Surgery Plastic and Reconstructive Surgery
DX: K59.00 Constipation, unspecified (principal); Z98.84 Bariatric surgery status; E11.9 Type 2 diabetes mellitus without complications; Z79.4 Long term (current) use of insulin; I11.9 Hypertensive heart disease without heart failure; I43 Cardiomyopathy in diseases classified elsewhere; E78.1 Pure hyperglyceridemia; E66.01 Morbid (severe) obesity due to excess calories; Z68.29 Body mass index [BMI] 29.0-29.9, adult; Z79.899 Other long term (current) drug therapy
CPT/HCPCS: 97803; G0463; 99211

== ENCOUNTER → 2018-09-07 | Outpatient (CLI) | payer MEDICARE ==
--- NOTE | 2018-09-07 16:36 | P.PN ---
Subjective Progress Note Date: 09/07/18 DATE OF SERVICE: 09/07/2018 CHIEF COMPLAINT: Status post gastric bypass HISTORY OF PRESENT ILLNESS: Pepe Awan is a 68-year-old gentleman status post gastric bypass 05/09/2018. He is 5 months out. He is no longer on insulin. No GERD. He feels well. No dysphagia. No abdominal pain. Today, he comes in weighing 178 pounds from 188 pounds, 2 months ago. He lost 10 pounds in 2 months. His highest weight was 230 pounds. At his height of 5 feet 6.75 inches, his ideal body weight is 154 pounds. He has lost 52 pounds. Percent excess weight loss is 68%. BMI reduced from 36.4 to 28.2. PHYSICAL EXAM: VITAL SIGNS: 5 foot 6.75 inches, 178 pounds, Body mass index 28.1 Vital Signs Temp 98.2 F 09/07/18 16:34 Pulse 67 09/07/18 16:34 Resp BP 141/59 09/07/18 16:34 Pulse Ox GENERAL: Well-developed pleasant male in no acute distress. HEENT: No scleral icterus. Extraocular movements grossly intact. Moist buccal mucosa. No nasal drainage. Hears conversational speech. NECK: Supple without lymphadenopathy. Has no JVD distention. CHEST: Unlabored respirations with equal bilateral excursions. CARDIOVASCULAR: Regular rate, regular rhythm. Distal 2+ pulses. ABDOMEN: Obese, soft, nondistended. No infection. No hernia MUSCULOSKELETAL: No clubbing, cyanosis, or edema. NEURO: No focal or lateralizing signs. Cranial nerves 2 through 12 grossly within normal limits. PSYCH: Appropriate affect. Alert and oriented to person, place and time. SKIN: Well perfused. Good skin turgor. ASSESSMENT: 1. Morbid obesity due to excess calories 2. BMI 36.3, initial now 28.1 3. Hypertensive heart disease with cardiomyopathy. 4. Diabetes type 2, insulin-dependent 5. Gastroesophageal reflux disease. 6. Chronic sinusitis. 7. Osteoarthritis, diffuse. 8. Hiatal hernia. 9. Hyperthyroidism. 10. Hypertriglyceridemia. 11. Status post gastric bypass 12. Constipation PLAN: 1. Recommend bariatric labs advised 2. Recommend fiber for constipation Laboratory Last Values WBC 8.8 k/uL (3.8-10.6) 09/07/18 17:45 RBC 4.37 m/uL (4.30-5.90) 09/07/18 17:45 Hgb 14.1 gm/dL (13.0-17.5) 09/07/18 17:45 Hct 42.0 % (39.0-53.0) 09/07/18 17:45 MCV 96.2 fL (80.0-100.0) 09/07/18 17:45 MCH 32.2 pg (25.0-35.0) 09/07/18 17:45 MCHC 33.5 g/dL (31.0-37.0) 09/07/18 17:45 RDW 13.7 % (11.5-15.5) 09/07/18 17:45 Plt Count 57 k/uL (150-450) L 09/07/18 17:45 PT 10.2 sec (9.0-12.0) 09/07/18 17:45 INR 0.9 (<1.2) 09/07/18 17:45 APTT 25.0 sec (22.0-30.0) 09/07/18 17:45 Sodium 139 mmol/L (135-145) 09/07/18 17:45 Potassium 4.9 mmol/L (3.5-5.5) 09/07/18 17:45 Chloride 103 mmol/L (96-109) 09/07/18 17:45 Carbon Dioxide 25.7 mmol/L (21.6-31.8) 09/07/18 17:45 Anion Gap 10.30 mmol/L (4.00-12.00) 09/07/18 17:45 BUN 24.0 mg/dL (9.0-27.0) 09/07/18 17:45 Creatinine 0.8 mg/dL (0.6-1.5) 09/07/18 17:45 Est GFR (CKD-EPI)AfAm 106.4 (60.0-200.0) 09/07/18 17:45 Est GFR (CKD-EPI)NonAf 91.8 (60.0-200.0) 09/07/18 17:45 BUN/Creatinine Ratio 30.00 Ratio (12.00-20.00) H 09/07/18 17:45 Glucose 95 mg/dL (70-110) 09/07/18 17:[address] Glu mg/dL 123 09/07/18 17:45 Hemoglobin A1c 5.9 % (4.0-6.0) 09/07/18 17:45 Calcium 10.2 mg/dL (8.7-10.3) 09/07/18 17:45 Phosphorus 4.1 mg/dL (2.4-5.1) 09/07/18 17:45 Magnesium 1.8 mg/dL (1.5-2.4) 09/07/18 17:45 Iron 58 ug/dL (65-175) L 09/07/18 17:45 TIBC 315 ug/dL (228-460) 09/07/18 17:45 Iron Saturation 18.41 (15.00-50.00) 09/07/18 17:45 Ferritin 37.7 ng/mL (22.0-322.0) 09/07/18 17:45 Total Bilirubin 0.3 mg/dL (0.3-1.2) 09/07/18 17:45 AST 21 U/L (14-35) 09/07/18 17:45 ALT 22 U/L (10-49) 09/07/18 17:45 Alkaline Phosphatase 44 U/L (41-126) 09/07/18 17:45 Total Protein 6.8 g/dL (6.2-8.2) 09/07/18 17:45 Albumin 4.70 g/dL (3.80-4.90) 09/07/18 17:45 Globulin 2.1 g/dL (1.6-3.3) 09/07/18 17:45 Albumin/Globulin Ratio 2.24 g/dL (1.60-3.17) 09/07/18 17:45 Prealbumin 28.0 mg/dL (18.0-42.0) 09/07/18 17:45 Triglycerides 206.0 mg/dL (0.0-149.0) H 09/07/18 17:45 Cholesterol 163 mg/dL (0-200) 09/07/18 17:45 LDL Cholesterol, Calc 85.8 mg/dL (0.0-131.0) 09/07/18 17:45 VLDL Cholesterol, Calc 41.20 mg/dL (5.00-40.00) H 09/07/18 17:45 HDL Cholesterol 36.0 mg/dL (40.0-60.0) L 09/07/18 17:45 Cholesterol/HDL Ratio 4.53 09/07/18 17:45 Vitamin A 75 ug/dL (38-106) 09/07/18 17:45 Vitamin B1 95 ug/L (38-122) 09/07/18 17:45 Vitamin B12 >4000.0 pg/mL (211-911) H 09/07/18 17:45 Vitamin D 25-Hydroxy 61.1 ng/mL (30.0-100.0) 09/07/18 17:45 Folate >24.0 ng/mL 09/07/18 17:45 TSH 2.020 uIU/mL (0.350-5.500) 09/07/18 17:45 PTH Intact 27.0 pg/mL (14.0-72.0) 09/07/18 17:45 Copper 1011 ug/L (665-1480) 09/07/18 17:45 Selenium 242 mcg/L (63-160) H 09/07/18 17:45 Zinc 79 ug/dL (60-130) 09/07/18 17:45 Platelet is low Iron is low HDL is low Selenium is high Objective - Labs CBC & Chem 7: 09/07/18 17:45 09/07/18 17:45
[2018-09-07 17:10] VITALS: BP 141/59; PULSE 67; TEMP 98.2; BMI 28.1
[2018-09-07 18:22] LABS: INR 0.9 (<1.2); Prothrombin Time 10.2 sec (9.0-12.0)
[2018-09-07 19:16] LABS: HGB 14.1 gm/dL (13.0-17.5); MCH 32.2 pg (25.0-35.0); MCHC 33.5 g/dL (31.0-37.0); MCV 96.2 fL (80.0-100.0); Mean Platelet Volume 7.6; RBC 4.37 m/uL (4.30-5.90); RDW 13.7 % (11.5-15.5); WBC 8.8 k/uL (3.8-10.6)
[2018-09-07 19:23] LABS: Platelet Count 57 k/uL (150-450)
[2018-09-08 00:35] LABS: Hemoglobin A1C 5.9 % (4.0-6.0)
[2018-09-08 01:08] LABS: Iron Saturation 18.41 (15.00-50.00)
[2018-09-08 01:16] LABS: Albumin 4.7 g/dL (3.80-4.90); Albumin/Globulin Ratio 2.24 (1.60-3.17); Anion Gap 10.3 mmol/L (4.00-12.00); Calcium 10.2 mg/dL (8.7-10.3); Carbon Dioxide 25.7 mmol/L (21.6-31.8); Globulin 2.1 g/dL (1.6-3.3); LDL Cholesterol,Calculated 85.8 mg/dL (0.0-131.0); Magnesium 1.8 mg/dL (1.5-2.4); Phosphorus 4.1 mg/dL (2.4-5.1); Potassium 4.9 mmol/L (3.5-5.5); Total Bilirubin 0.3 mg/dL (0.3-1.2); Total Protein 6.8 g/dL (6.2-8.2); VLDL Calculation 41.2 mg/dL (5.00-40.00); Vitamin D 25 Hydroxy 61.1 ng/mL (30.0-100.0)
[2018-09-08 01:48] LABS: Folate, Serum >24.0 ng/mL; Vitamin B12 >4000.0 pg/mL (211-911)
[2018-09-09 15:16] LABS: Zinc, Serum 79 ug/dL (60-130)
[2018-09-12 08:02] LABS: Vitamin A 75 ug/dL (38-106)
[2018-09-13 08:12] LABS: Vit B1(Thiamine) 95 ug/L (38-122)
[2018-09-14 19:11] LABS: Selenium 242 mcg/L (63-160)
== END ==
LOC: BARWHC3 14:32
PROVIDERS: ATTEND Surgery Plastic and Reconstructive Surgery
DX: Z48.815 Encounter for surgical aftercare following surgery on the digestive system (principal); E66.01 Morbid (severe) obesity due to excess calories; I11.0 Hypertensive heart disease with heart failure; K21.9 Gastro-esophageal reflux disease without esophagitis; J32.9 Chronic sinusitis, unspecified; K44.9 Diaphragmatic hernia without obstruction or gangrene; E78.1 Pure hyperglyceridemia; E05.90 Thyrotoxicosis, unspecified without thyrotoxic crisis or storm; M19.90 Unspecified osteoarthritis, unspecified site; I42.9 Cardiomyopathy, unspecified; E21.1 Secondary hyperparathyroidism, not elsewhere classified; E89.1 Postprocedural hypoinsulinemia; D50.9 Iron deficiency anemia, unspecified; E44.0 Moderate protein-calorie malnutrition; E55.9 Vitamin D deficiency, unspecified; K74.1 Hepatic sclerosis; N19 Unspecified kidney failure; K50.90 Crohn's disease, unspecified, without complications; E11.9 Type 2 diabetes mellitus without complications; Z98.84 Bariatric surgery status; K59.00 Constipation, unspecified; Z68.28 Body mass index [BMI] 28.0-28.9, adult; Z71.3 Dietary counseling and surveillance
CPT/HCPCS: 84255; 84134; 84425; 80061; 80053; 82607; 82728; 82525; 82746; 83540; 83550; 83735; 84100; 84443; 84590; 84630; 85027; 85610; 85730; 82306; 83970; 83036; 97803; G0463; 99211

== ENCOUNTER → 2018-11-09 | Outpatient (CLI) | payer MEDICARE ==
[2018-11-09 13:30] VITALS: BP 139/71; PULSE 64; TEMP 97.9; BMI 28.1
--- NOTE | 2018-11-09 15:08 | P.PN ---
Subjective Progress Note Date: 11/09/18 HPI: He is 6 months out. He is happy with weight loss. He does not take additional medications. He is only taking Metformin. No issues ADBOMEN: Unremarkable ASSESSMENT: 1. Morbid obesity PLAN: 1. Exercise advised. 2. Adding vegetables advised 3. Fiber supplement Objective - Vital Signs Vital signs: Vital Signs Temp 97.9 F 11/09/18 13:27 Pulse 64 11/09/18 13:27 Resp BP 139/71 11/09/18 13:27 Pulse Ox Intake & Output 11/08/18 11/09/18 11/09/18 18:59 06:59 18:59 Weight 81.012 kg
== END | disposition home or self-care (01) ==
LOC: BARWHC3 12:57
PROVIDERS: ATTEND Surgery Plastic and Reconstructive Surgery
DX: E66.01 Morbid (severe) obesity due to excess calories (principal); E21.1 Secondary hyperparathyroidism, not elsewhere classified; E89.1 Postprocedural hypoinsulinemia; D50.9 Iron deficiency anemia, unspecified; K90.9 Intestinal malabsorption, unspecified; E55.9 Vitamin D deficiency, unspecified; K76.9 Liver disease, unspecified; N19 Unspecified kidney failure; K50.90 Crohn's disease, unspecified, without complications; Z68.28 Body mass index [BMI] 28.0-28.9, adult
CPT/HCPCS: 97803; G0463; 99211

== ENCOUNTER → 2019-03-08 | Outpatient (CLI) | payer MEDICARE ==
--- NOTE | 2019-03-08 13:11 | P.PN ---
Subjective Progress Note Date: 03/08/19 HPI: He reports trouble with his blood sugar. His weight is unchanged from 4 months ago. He is drinking caffeinated coffee. He drinks Premier protein. His protein intake averages 50 to 60 grams. Blood sugars are 130 to 140s. He rarely takes insulin. He is 10 months out. ABDOMEN: No hernia. ASSESSMENT: 1. Morbid obesity PLAN: 1. Check labs 2. Meal planning 3. Food diary journal
[2019-03-08 13:26] VITALS: BP 151/68; PULSE 65; TEMP 98.2; BMI 27.9
[2019-03-08 14:43] LABS: HCT 43.9 % (39.0-53.0); HGB 15.3 gm/dL (13.0-17.5); MCH 33.1 pg (25.0-35.0); MCHC 34.9 g/dL (31.0-37.0); MCV 94.7 fL (80.0-100.0); Mean Platelet Volume 6.8; Platelet Count 189 k/uL (150-450); RBC 4.64 m/uL (4.30-5.90); RDW 13.2 % (11.5-15.5); WBC 7.6 k/uL (3.8-10.6)
[2019-03-08 14:55] LABS: Prothrombin Time 10.3 sec (9.0-12.0)
[2019-03-08 14:56] LABS: Partial Thromboplastin Time 25.8 sec (22.0-30.0)
[2019-03-08 20:07] LABS: African American GFR (CKD) 105.6 (60.0-200.0); Albumin 4.9 g/dL (3.80-4.90); Albumin/Globulin Ratio 2.45 (1.60-3.17); Calcium 9.9 mg/dL (8.7-10.3); Chol/HDL Ratio 3.98; LDL Cholesterol,Calculated 90.6 mg/dL (0.0-131.0); Magnesium 1.8 mg/dL (1.5-2.4); Phosphorus 4.2 mg/dL (2.4-5.1); Potassium 4.6 mmol/L (3.5-5.5); Total Bilirubin 0.4 mg/dL (0.3-1.2); Total Protein 6.9 g/dL (6.2-8.2); VLDL Calculation 37.4 mg/dL (5.00-40.00)
[2019-03-08 20:11] LABS: Iron Saturation 28.1 (15.00-50.00)
[2019-03-08 21:03] LABS: Folate, Serum 22.9 ng/mL
[2019-03-09 04:33] LABS: Hemoglobin A1C 6.3 % (4.0-6.0)
[2019-03-09 14:00] LABS: Zinc, Serum 68 ug/dL (60-130)
[2019-03-11 13:26] LABS: Vitamin A 95 ug/dL (38-106)
[2019-03-11 17:47] LABS: Selenium 179 mcg/L (63-160)
[2019-03-17 06:47] LABS: Vit B1(Thiamine) 112 ug/L (38-122)
== END | disposition home or self-care (01) ==
LOC: BARWHC3 12:46
PROVIDERS: ATTEND Surgery Plastic and Reconstructive Surgery
DX: E66.01 Morbid (severe) obesity due to excess calories (principal); E21.1 Secondary hyperparathyroidism, not elsewhere classified; E89.1 Postprocedural hypoinsulinemia; D50.9 Iron deficiency anemia, unspecified; K90.9 Intestinal malabsorption, unspecified; E55.9 Vitamin D deficiency, unspecified; K76.9 Liver disease, unspecified; N19 Unspecified kidney failure; K50.90 Crohn's disease, unspecified, without complications; Z68.27 Body mass index [BMI] 27.0-27.9, adult
CPT/HCPCS: 84255; 84134; 84425; 80061; 80053; 82607; 82728; 82525; 82746; 83540; 83550; 83735; 84100; 84443; 84590; 84630; 85027; 85610; 85730; 82306; 83970; 83036; 36415; G0463; 99211

== ENCOUNTER → 2019-04-06 | Outpatient (CLI) | payer MEDICARE ==
--- NOTE | 2019-04-06 17:22 | PN ---
PROGRESS NOTE DATE OF SERVICE: 04/06/2019 69-year-old gentleman who has been [facility] for treatment of obstructive sleep apnea-hypopnea syndrome. The patient continued to use his CPAP equipment every night for the whole night without significant problems related to mask, fitting, pressure, humidification. [place] Sleepiness Scale today is 0. I checked CPAP unit. CPAP pressure 8 cm of water. Usage is 27 out of 30 nights and 26 out of 30 nights more than 4 hours. Average usage is 6.7 hours. Leak 26 L/minute which is acceptable range. Apnea-hypopnea index only 0.4, which is perfect. MEDICATIONS: Lantus. Metformin. Prevacid. PHYSICAL EXAM: Patient in no distress. BP 158/66, HR 62, RR 16, height 5 feet 7 inches, weight 181. Body mass index 28.3, temperature 98.3. Oxygen saturation on room air: 96%. The patient has lost about 46 pounds since previous visit. Weight was 227 pounds. Body mass index 28.3, temperature 98.3, oxygen saturation at room air 96%. Oropharynx low position of soft palate. Mallampati 3. Neck: Supple, no JVD. Thyroid is not palpable. LUNGS: Clear to percussion and to auscultation. Good air exchange. No wheezing or rhonchi. HEART S1, S2 regular. No murmurs, gallops, or rubs. ABDOMEN: Slightly obese. Soft and nontender. Bowel sounds are present. No organomegaly appreciated. EXTREMITIES No clubbing or cyanosis. [employer] Awake, alert, and oriented X3. Cranial nerves 2 to 7 intact. There is no fasciculation or atrophy. noted. No focal deficits observed. IMPRESSION: 1. Obstructive sleep apnea-hypopnea syndrome. 2. Diabetics mellitus. 3. History of carpal tunnel syndrome. 4. Hypertension in the office. 5. History of migraines, no recent episodes. 6. Status post bilateral cataract surgery. 7. Glaucoma, presently eye pressure is normal after laser surgery bilaterally. 8. Status post surgical treatment of umbilical hernia. PLAN: 1. Patient will continue to use CPAP equipment every night for the whole night. 2. Continue losing weight. 3. Sleep hygiene with regular time in bed for at least 7-1/2 hours. 4. Prescription for all necessary CPAP supplies including mask, tube, filters. 5. No driving if feeling sleepiness. 6. Follow-up visit in 1 year or earlier if patient has any problems. Thank you very much for allowing me to participate in management of your patient. Sincerely, Gilson Turner MD, PhD, FAASM Diplomat of [employer] [employer] Legal Assistant of [facility] [place] [id number] / JUJUN: [id number] /
== END ==
LOC: SLEEP 14:28
PROVIDERS: ATTEND Internal Medicine
DX: G47.33 Obstructive sleep apnea (adult) (pediatric) (principal); E11.9 Type 2 diabetes mellitus without complications; I10 Essential (primary) hypertension; G43.909 Migraine, unspecified, not intractable, without status migrainosus; Z98.890 Other specified postprocedural states; Z99.89 Dependence on other enabling machines and devices; Z79.4 Long term (current) use of insulin; Z79.899 Other long term (current) drug therapy; Z86.69 Personal history of other diseases of the nervous system and sense organs

== ENCOUNTER → 2019-06-07 | Outpatient (CLI) | payer MEDICARE ==
[2019-06-07 13:47] VITALS: BMI 29.6
[2019-06-07 13:49] VITALS: BP 166/72; PULSE 77; TEMP 98.1
--- NOTE | 2019-06-07 14:20 | P.PN ---
Subjective Progress Note Date: 06/07/19 DATE OF SERVICE: 06/07/2019 CHIEF COMPLAINT: Status post gastric bypass HISTORY OF PRESENT ILLNESS: Pepe Awan is a 69-year-old gentleman status post gastric bypass 05/09/2018. He is 1 year out. He is having troubles with his blood sugars. He is still on Metformin. He has gained 10 pounds in 3 months. He denies hunger. He is under his protein intake. 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 His protein intake is less than 40 grams daily. No reports of abdominal pain. He reports constipation. Today, he comes in weighing 187 pounds from 177 pounds, 3 months ago. He has gained 11 pounds in 3 months. His highest weight is 230 pounds. At his height of 5 feet 6.75 inches, his ideal body weight is 154 pounds. He has lost 43 pounds, lifetime. Percent excess weight loss is 56 %. BMI reduced from 36.4 to 29.6 PHYSICAL EXAM: VITAL SIGNS: 5 foot 6.75 inches, 187 pounds, Body mass index 29.6 Vital Signs Temp 98.1 F 06/07/19 13:24 Pulse 77 06/07/19 13:24 Resp BP 166/72 06/07/19 13:24 Pulse Ox GENERAL: Well-developed pleasant and in no acute distress. HEENT: No scleral icterus. Extraocular movements grossly intact. Moist buccal mucosa. No nasal drainage. Hears conversational speech. NECK: Supple without lymphadenopathy. Has no JVD distention. CHEST: Unlabored respirations with equal bilateral excursions. CARDIOVASCULAR: Regular rate, regular rhythm. Distal 2+ pulses. ABDOMEN: Obese, soft, nondistended. No hernia. MUSCULOSKELETAL: No clubbing, cyanosis, or edema. NEURO: No focal or lateralizing signs. Cranial nerves 2 through 12 grossly with in normal limits. PSYCH: Appropriate affect. Alert and oriented to person, place and time. SKIN: Well perfused. Good skin turgor. ASSESSMENT: 1. Morbid obesity due to excess calories 2. BMI 36.3, initial now 29.6 3. Hypertensive heart disease with cardiomyopathy. 4. Diabetes type 2, insulin-dependent 5. Gastroesophageal reflux disease. 6. Chronic sinusitis. 7. Osteoarthritis, diffuse. 8. Hiatal hernia. 9. Hyperthyroidism. 10. Hypertriglyceridemia. 11. Status post gastric bypass 12. Dietary surveillance and counseling PLAN: 1. Recommend food diary journal. 2. Recommend bariatric labs. Laboratory Last Values WBC 8.6 k/uL (3.8-10.6) 06/07/19 15:41 RBC 4.47 m/uL (4.30-5.90) 06/07/19 15:41 Hgb 14.5 gm/dL (13.0-17.5) 06/07/19 15:41 Hct 42.4 % (39.0-53.0) 06/07/19 15:41 MCV 94.9 fL (80.0-100.0) 06/07/19 15:41 MCH 32.4 pg (25.0-35.0) 06/07/19 15:41 MCHC 34.1 g/dL (31.0-37.0) 06/07/19 15:41 RDW 12.6 % (11.5-15.5) 06/07/19 15:41 Plt Count 212 k/uL (150-450) 06/07/19 15:41 PT 10.0 sec (9.0-12.0) 06/07/19 15:41 INR 0.9 (<1.2) 06/07/19 15:41 APTT 25.7 sec (22.0-30.0) 06/07/19 15:41 Sodium 141 mmol/L (135-145) 06/07/19 15:41 Potassium 4.6 mmol/L (3.5-5.5) 06/07/19 15:41 Chloride 103 mmol/L (96-109) 06/07/19 15:41 Carbon Dioxide 25.9 mmol/L (21.6-31.8) 06/07/19 15:41 Anion Gap 12.10 mmol/L (4.00-12.00) H 06/07/19 15:41 BUN 24.0 mg/dL (9.0-27.0) 06/07/19 15:41 Creatinine 0.9 mg/dL (0.6-1.5) 06/07/19 15:41 Est GFR (CKD-EPI)AfAm 100.6 (60.0-200.0) 06/07/19 15:41 Est GFR (CKD-EPI)NonAf 86.8 (60.0-200.0) 06/07/19 15:41 BUN/Creatinine Ratio 26.67 Ratio (12.00-20.00) H 06/07/19 15:41 Glucose 122 mg/dL (70-110) H 06/07/19 15:[address] Glu mg/dL 151 06/07/19 15:41 Hemoglobin A1c 6.9 % (4.0-6.0) H 06/07/19 15:41 Calcium 9.9 mg/dL (8.7-10.3) 06/07/19 15:41 Phosphorus 3.8 mg/dL (2.4-5.1) 06/07/19 15:41 Magnesium 1.9 mg/dL (1.5-2.4) 06/07/19 15:41 Iron 68 ug/dL (65-175) 06/07/19 15:41 TIBC 377 ug/dL (228-460) 06/07/19 15:41 % Saturation 18.04 (15.00-50.00) 06/07/19 15:41 Ferritin 15.7 ng/mL (22.0-322.0) L 06/07/19 15:41 Total Bilirubin 0.5 mg/dL (0.3-1.2) 06/07/19 15:41 AST 26 U/L (14-35) 06/07/19 15:41 ALT 24 U/L (10-49) 06/07/19 15:41 Alkaline Phosphatase 47 U/L (41-126) 06/07/19 15:41 Total Protein 6.8 g/dL (6.2-8.2) 06/07/19 15:41 Albumin 4.90 g/dL (3.80-4.90) 06/07/19 15:41 Globulin 1.9 g/dL (1.6-3.3) 06/07/19 15:41 Albumin/Globulin Ratio 2.58 g/dL (1.60-3.17) 06/07/19 15:41 Prealbumin 34.0 mg/dL (18.0-42.0) 06/07/19 15:41 Triglycerides 129.0 mg/dL (0.0-149.0) 06/07/19 15:41 Cholesterol 169 mg/dL (0-200) 06/07/19 15:41 LDL Cholesterol, Calc 99.2 mg/dL (0.0-131.0) 06/07/19 15:41 VLDL Cholesterol, Calc 25.80 mg/dL (5.00-40.00) 06/07/19 15:41 HDL Cholesterol 44.0 mg/dL (40.0-60.0) 06/07/19 15:41 Cholesterol/HDL Ratio 3.84 06/07/19 15:41 Vitamin A 83 ug/dL (38-106) 06/07/19 15:41 Vitamin B1 112 ug/L (38-122) 06/07/19 15:41 Vitamin B12 3190.0 pg/mL (200.0-944.0) H 06/07/19 15:41 Vitamin D 25-Hydroxy 34.0 ng/mL (30.0-100.0) 06/07/19 15:41 Folate 15.2 ng/mL 06/07/19 15:41 TSH 1.520 uIU/mL (0.350-5.500) 06/07/19 15:41 PTH Intact 45.4 pg/mL (14.0-72.0) 06/07/19 15:41 Copper 1020 ug/L (665-1480) 06/07/19 15:41 Selenium 164 mcg/L (63-160) H 06/07/19 15:41 Zinc 79 ug/dL (60-130) 06/07/19 15:41 Hgb A1c up from 6.3 to 6.9% Objective - Vital Signs Vital signs: Vital Signs Temp 98.1 F 06/07/19 13:24 Pulse 77 06/07/19 13:24 Resp BP 166/72 06/07/19 13:24 Pulse Ox Intake & Output 06/06/19 06/07/19 06/07/19 18:59 06:59 18:59 Weight 85.094 kg - Labs CBC & Chem 7: 06/07/19 15:41 06/07/19 15:41
[2019-06-07 15:55] LABS: HCT 42.4 % (39.0-53.0); HGB 14.5 gm/dL (13.0-17.5); MCH 32.4 pg (25.0-35.0); MCHC 34.1 g/dL (31.0-37.0); MCV 94.9 fL (80.0-100.0); Mean Platelet Volume 6.1; Platelet Count 212 k/uL (150-450); RBC 4.47 m/uL (4.30-5.90); RDW 12.6 % (11.5-15.5); WBC 8.6 k/uL (3.8-10.6)
[2019-06-07 16:00] LABS: INR 0.9 (<1.2); Partial Thromboplastin Time 25.7 sec (22.0-30.0)
[2019-06-08 00:19] LABS: Hemoglobin A1C 6.9 % (4.0-6.0)
[2019-06-08 01:40] LABS: % Iron Saturation 18.04 (15.00-50.00); African American GFR (CKD) 100.6 (60.0-200.0); Albumin 4.9 g/dL (3.80-4.90); Albumin/Globulin Ratio 2.58 (1.60-3.17); Anion Gap 12.1 mmol/L (4.00-12.00); BUN/Creat Ratio 26.67 Ratio (12.00-20.00); Calcium 9.9 mg/dL (8.7-10.3); Carbon Dioxide 25.9 mmol/L (21.6-31.8); Chol/HDL Ratio 3.84; Globulin 1.9 g/dL (1.6-3.3); LDL Cholesterol,Calculated 99.2 mg/dL (0.0-131.0); Magnesium 1.9 mg/dL (1.5-2.4); Non-African American GFR(CKD) 86.8 (60.0-200.0); Phosphorus 3.8 mg/dL (2.4-5.1); Potassium 4.6 mmol/L (3.5-5.5); Total Bilirubin 0.5 mg/dL (0.3-1.2); Total Protein 6.8 g/dL (6.2-8.2); VLDL Calculation 25.8 mg/dL (5.00-40.00)
[2019-06-08 02:20] LABS: Ferritin 15.7 ng/mL (22.0-322.0)
[2019-06-08 06:20] LABS: Folate, Serum 15.2 ng/mL
[2019-06-08 12:56] LABS: Zinc, Serum 79 ug/dL (60-130)
[2019-06-09 06:50] LABS: Vit B1(Thiamine) 112 ug/L (38-122)
[2019-06-12 07:53] LABS: Vitamin A 83 ug/dL (38-106)
[2019-06-12 18:29] LABS: Selenium 164 mcg/L (63-160)
== END | disposition home or self-care (01) ==
LOC: BARWHC3 12:38
PROVIDERS: ATTEND Surgery Plastic and Reconstructive Surgery
DX: Z48.815 Encounter for surgical aftercare following surgery on the digestive system (principal); E66.01 Morbid (severe) obesity due to excess calories; I11.9 Hypertensive heart disease without heart failure; I42.9 Cardiomyopathy, unspecified; K21.9 Gastro-esophageal reflux disease without esophagitis; J32.9 Chronic sinusitis, unspecified; M19.90 Unspecified osteoarthritis, unspecified site; K44.9 Diaphragmatic hernia without obstruction or gangrene; E05.90 Thyrotoxicosis, unspecified without thyrotoxic crisis or storm; E78.1 Pure hyperglyceridemia; Z98.84 Bariatric surgery status; Z68.29 Body mass index [BMI] 29.0-29.9, adult; Z71.3 Dietary counseling and surveillance; E21.1 Secondary hyperparathyroidism, not elsewhere classified; E89.1 Postprocedural hypoinsulinemia; D50.9 Iron deficiency anemia, unspecified; K90.9 Intestinal malabsorption, unspecified; E55.9 Vitamin D deficiency, unspecified; K76.9 Liver disease, unspecified; N19 Unspecified kidney failure; K50.90 Crohn's disease, unspecified, without complications
CPT/HCPCS: 84255; 84134; 84425; 80061; 80053; 82607; 82728; 82525; 82746; 83540; 83550; 83735; 84100; 84443; 84590; 84630; 85027; 85610; 85730; 82306; 83970; 83036; 97803; 36415; G0463; 99211

== ENCOUNTER → 2020-06-12 | Outpatient (CLI) | payer MEDICARE ==
[2020-06-12 15:25] VITALS: BP 147/67; PULSE 64; RESP 18; TEMP 98.2; BMI 29.6
--- NOTE | 2020-06-12 15:56 | P.PN ---
Subjective Progress Note Date: 06/12/20 DATE OF SERVICE: 06/12/2020 CHIEF COMPLAINT: Status post gastric bypass HISTORY OF PRESENT ILLNESS: Pepe Awan is a 70-year-old gentleman status post gastric bypass 05/09/2018. He is over 2 years out. He is eating late at night with blood sugars 200 and his blood sugars are high in the morning. For dinner for last night, he ate [employer] hot dogs. He ate sinhala fries. He and his are cheating on their diet. His last hemoglobin A1c was 7.1. Today, he comes in weighing 188 pounds from 187 pounds, 1 year ago. He has gained 1 pounds in 1 year. His highest weight is 230 pounds. At his height of 5 feet 6.75 inches, his ideal body weight is 154 pounds. He has lost 42 pounds, lifetime. Percent excess weight loss is 56 %. BMI reduced from 36.4 to 29.7. PHYSICAL EXAM: VITAL SIGNS: 5 foot 6.75 inches, 188 pounds, Body mass index 29.7 Vital Signs Temp 98.2 F 06/12/20 15:20 Pulse 64 06/12/20 15:20 Resp 18 06/12/20 15:20 BP 147/67 06/12/20 15:20 Pulse Ox GENERAL: Well-developed pleasant and in no acute distress. HEENT: No scleral icterus. Extraocular movements grossly intact. Moist buccal mucosa. No nasal drainage. Hears conversational speech. NECK: Supple without lymphadenopathy. Has no JVD distention. CHEST: Unlabored respirations with equal bilateral excursions. CARDIOVASCULAR: Regular rate, regular rhythm. Distal 2+ pulses. ABDOMEN: Obese, soft, nondistended. No hernia. MUSCULOSKELETAL: No clubbing, cyanosis, or edema. NEURO: No focal or lateralizing signs. Cranial nerves 2 through 12 grossly within normal limits. PSYCH: Appropriate affect. Alert and oriented to person, place and time. SKIN: Well perfused. Good skin turgor. ASSESSMENT: 1. Morbid obesity due to excess calories 2. BMI 36.3, initial now 29.7 3. Hypertensive heart disease with cardiomyopathy. 4. Diabetes type 2, insulin-dependent 5. Gastroesophageal reflux disease. 6. Chronic sinusitis. 7. Osteoarthritis, diffuse. 8. Hiatal hernia. 9. Hyperthyroidism. 10. Hypertriglyceridemia. 11. Status post gastric bypass 12. Dietary surveillance and counseling PLAN: 1. Recommend two week protein diet. 2. Recommend bariatric labs. Objective - Vital Signs Vital signs: Vital Signs Temp 98.2 F 06/12/20 15:20 Pulse 64 06/12/20 15:20 Resp 18 06/12/20 15:20 BP 147/67 06/12/20 15:20 Pulse Ox Intake & Output 06/11/20 06/12/20 06/12/20 18:59 06:59 18:59 Weight 85.275 kg
== END | disposition home or self-care (01) ==
LOC: BARWHC3 15:03
PROVIDERS: ATTEND Surgery Plastic and Reconstructive Surgery
DX: E66.01 Morbid (severe) obesity due to excess calories (principal); I11.9 Hypertensive heart disease without heart failure; I42.9 Cardiomyopathy, unspecified; E11.9 Type 2 diabetes mellitus without complications; Z79.4 Long term (current) use of insulin; K21.9 Gastro-esophageal reflux disease without esophagitis; M19.90 Unspecified osteoarthritis, unspecified site; K44.9 Diaphragmatic hernia without obstruction or gangrene; E05.90 Thyrotoxicosis, unspecified without thyrotoxic crisis or storm; E78.1 Pure hyperglyceridemia; Z71.3 Dietary counseling and surveillance; Z98.84 Bariatric surgery status; Z68.36 Body mass index [BMI] 36.0-36.9, adult; J32.9 Chronic sinusitis, unspecified
CPT/HCPCS: 99211

== ENCOUNTER → 2020-06-12 | Outpatient (CLI) | payer MEDICARE ==
[2020-06-12 18:34] LABS: HCT 40.7 % (39.0-53.0); HGB 13.6 gm/dL (13.0-17.5); MCHC 33.4 g/dL (31.0-37.0); MCV 95.8 fL (80.0-100.0); Platelet Count 310 k/uL (150-450); RBC 4.25 m/uL (4.30-5.90); RDW 13.1 % (11.5-15.5); WBC 8.5 k/uL (3.8-10.6)
[2020-06-13 01:00] LABS: Partial Thromboplastin Time 27.4 sec (23.5-31.0); Prothrombin Time 10.8 sec (9.9-11.9)
[2020-06-13 05:43] LABS: % Iron Saturation 14.69 (15.00-50.00); ALT 24 U/L (10-49); AST 26 U/L (14-35); African American GFR (CKD) 99.9 (60.0-200.0); Albumin/Globulin Ratio 2.48 (1.60-3.17); Alkaline Phosphatase 46 U/L (41-126); Calcium 10.4 mg/dL (8.7-10.3); Carbon Dioxide 24.1 mmol/L (21.6-31.8); Chloride 102 mmol/L (96-109); Chol/HDL Ratio 4.86; Cholesterol 214 mg/dL (0-200); Ferritin 10.5 ng/mL (22.0-322.0); Folate, Serum >24.0 ng/mL; Globulin 2.1 g/dL (1.6-3.3); Glucose 101 mg/dL (70-110); Iron 62 ug/dL (65-175); LDL Cholesterol,Calculated 114.6 mg/dL (0.0-131.0); Non-African American GFR(CKD) 86.2 (60.0-200.0); Phosphorus 4.1 mg/dL (2.4-5.1); Potassium 4.5 mmol/L (3.5-5.5); Sodium 138 mmol/L (135-145); Total Bilirubin 0.4 mg/dL (0.3-1.2); Total Iron Binding Capacity 422 ug/dL (228-460); Total Protein 7.3 g/dL (6.2-8.2)
== END | disposition home or self-care (01) ==
LOC: LABWHC1 16:19
PROVIDERS: ATTEND Surgery Plastic and Reconstructive Surgery
DX: D50.8 Other iron deficiency anemias (principal); K90.89 Other intestinal malabsorption; E55.9 Vitamin D deficiency, unspecified; K74.1 Hepatic sclerosis; N19 Unspecified kidney failure; K50.90 Crohn's disease, unspecified, without complications
CPT/HCPCS: 36415; 80053; 80061; 82306; 82525; 82607; 82728; 82746; 83540; 83550; 83735; 83970; 84100; 84134; 84255; 84425; 84443; 84590; 84630; 85027; 85610; 85730